=== PATIENT | male | born 2000 | race African-American/Black ===

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

== ENCOUNTER 2021-03-04 23:18 | Emergency (ER) | payer OTHER ==
[~2021-03-04] VITALS: Ht 180.3 cm; Wt 73.0 kg
[~2021-03-04 23:18] MED LIST changes: +AMOXICILLI250 MG/5 M PO
[2021-03-04 23:40] VITALS: BP 126/81
== END 2021-03-04 23:56 | disposition left against medical advice (07) ==
LOC: ED 23:18
DX: Z91.19 Patient's noncompliance with other medical treatment and regimen (principal)

== ENCOUNTER 2021-03-05 19:58 | Emergency (ER) | payer OTHER | END 2021-03-05 20:25 | disposition left against medical advice (07) | DRG 951 | LOC: ED 19:58 → LWOBS 20:25 | DX: Z53.21 Procedure and treatment not carried out due to patient leaving prior to being seen by health care provider (principal) ==

== ENCOUNTER 2021-11-08 21:40 | Emergency (ER) | payer OTHER ==
[~2021-11-08] VITALS: Ht 177.8 cm; Wt 72.7 kg
[2021-11-08 22:31] VITALS: BP 229/145
[2021-11-08 22:33] VITALS: BP 131/83
[2021-11-08 22:39] LABS: HEMATOCRIT 50.2 % (39.0-50.0); HEMOGLOBIN 15.7 g/dl (14.0-18.0); IMMATURE GRANULOCYTES 0.2 % (0.0-5.0); MEAN CELL VOLUME 86.1 fL CALC (80.0-100.0); MEAN CORPUSCULAR HGB 26.9 pG CALC (26.0-32.0); MEAN CORPUSCULAR HGB CONC 31.3 g/dL CAL (32.0-36.0); NEUT# 10.28 thou/uL (1.82-7.42); RED BLOOD COUNT 5.83 mill/uL (4.70-6.10); RED CELL DISTRI WIDTH 12.3 % (11.5-15.5)
[2021-11-08 22:45] VITALS: BP 135/80
[2021-11-08 23:00] VITALS: BP 129/83
[2021-11-08 23:15] VITALS: BP 126/82
== END 2021-11-08 23:20 | disposition home or self-care (01) ==
LOC: ED 21:40
PROVIDERS: Family Medicine
DX: U07.1 COVID-19 (principal); R50.9 Fever, unspecified; R05.9 Cough, unspecified; R51.9 Headache, unspecified; R09.81 Nasal congestion

== ENCOUNTER 2023-02-24 20:17 | Emergency (ER) | payer SELFPAY ==
[~2023-02-24] VITALS: Ht 177.8 cm; Wt 86.2 kg
[2023-02-24 20:42] VITALS: BP 134/86
[2023-02-24] MEDS ORDERED: PREDNISONE50 MG PO (22:07)
[2023-02-24] MEDS ORDERED: AMOX/K CLAV875 M1 PO (22:07)
== END 2023-02-24 22:12 | disposition left against medical advice (07) | DRG 153 ==
LOC: ED 20:17
DX: J39.1 Other abscess of pharynx (principal); H66.93 Otitis media, unspecified, bilateral; Z53.29 Procedure and treatment not carried out because of patient's decision for other reasons; Z20.822 Contact with and (suspected) exposure to COVID-19

== ENCOUNTER 2023-07-08 03:35 | Emergency (ER) | payer SELFPAY ==
[~2023-07-08] VITALS: Ht 177.8 cm; Wt 85.0 kg
[~2023-07-08 03:35] MED LIST changes: +AMOX/K CLAV875 M1 PO; +PREDNISONE50 MG PO
[2023-07-08 03:41] VITALS: BP 133/88
[2023-07-08] MEDS ORDERED: MEDDOSEPAK PO (05:18)
[2023-07-08] MEDS ORDERED: AMOX/K CLAV875 M1 PO (05:18)
[2023-07-08 05:23] VITALS: BP 133/88
== END 2023-07-08 05:23 | disposition home or self-care (01) | DRG 153 ==
LOC: ED 03:35
DX: J32.9 Chronic sinusitis, unspecified (principal); Z20.822 Contact with and (suspected) exposure to COVID-19

== ENCOUNTER 2024-04-26 11:41 | Emergency (ER) | payer SELFPAY ==
[~2024-04-26] VITALS: Ht 177.8 cm; Wt 81.0 kg
[2024-04-26] VITALS (13 sets, daily range): BP systolic 111–134; BP diastolic 73–90
[~2024-04-26 11:41] MED LIST changes: +KEFLEX500 MG PO; +MEDDOSEPAK PO
[2024-04-26] MEDS ORDERED: DEXAMETHASONE SOD. PHOSPHATE 10 MG/ML VIAL IM ONE (12:30)
[2024-04-26] MEDS ORDERED: ZPAK PO (13:09)
[2024-04-26] MEDS ORDERED: ZYRTEC10 MG PO (13:09)
== END 2024-04-26 13:31 | disposition home or self-care (01) | DRG 153 ==
LOC: ED 11:41
DX: J02.9 Acute pharyngitis, unspecified (principal); Z72.0 Tobacco use; Z20.822 Contact with and (suspected) exposure to COVID-19